=== PATIENT | male | born 1945 | race Two or more races ===

== ENCOUNTER 2025-08-23 12:28 | Emergency (ER) | payer MEDICARE, MEDICAID, SELFPAY ==
[2025-08-23] VITALS (14 sets, daily range): BP systolic 121–149; BP diastolic 79–94; PULSE 90–121; RESP 12–25; TEMP 36.5–37.1; O2SAT 88–100; BMI 23.8
--- NOTE | 2025-08-23 13:22 | PD.EDADULT ---
ED General RME/HPI General Chief complaint: General Adult/Misc Complain Stated complaint: GENERAL WEAKNESS Time Seen by Provider: 08/23/25 13:12 Arrival date/time: 08/23/25 12:28 RME / HPI RME / HPI narrative: 80 year old male with history of hypertension, diabetes, HI s/p pacemaker placement that was recently discharged from [facility] due to staph infection and pacemaker removal presents to the ED BIBA from home for evaluation of generalized weakness today. Accompanied by fevers, leg swelling, difficulty standing or getting around at home on his own. Patient reports he was just discharged from [facility] 2 days ago after a 2-3 week hospitalization for staph infection. States during his admission he had his pacemaker removed though were unable to remove 1 lead and advised he would need to have that removed at [place]. States he was discharged home on antibiotics which he reports compliance with. However, symptoms have remained unchanged. Additionally states since he was diagnosed with the staph infection of the pacemaker site 3-4 months ago his weakness has gradually worsened. Reportedly prior to infection 3 months ago, he was able to stand walk and ambulate on own without difficulty. Per medics, on scene the patient was saturating 88% on room air, placed on 6L nasal cannula with improvement to 94%. In the ED, patient reports feeling overall unwell. Patient is a poor historian. Related Data Home Medications ?Medication ?Instructions ?Recorded ?Confirmed clopidogrel 75 mg tablet (Plavix) 1 tab PO DAILY ##90 05/02/10 09/16/19 diphenhydramine HCl 25 mg tablet 50 mg PO BID PRN ITCHING ##180 10/01/13 09/16/19 atorvastatin 40 mg tablet 40 mg PO QPM ##0 12/13/15 09/16/19 carbidopa ER 50 mg-levodopa 200 mg 1 tab PO QID ##0 12/13/15 09/16/19 tablet,extended release gabapentin 300 mg capsule 300 mg PO TID #0 caps 12/13/15 09/16/19 labetalol 200 mg tablet 200 mg PO TID ##0 12/13/15 09/16/19 rotigotine 4 mg/24 hour 1 ea TD QDAY #0 patches 12/13/15 09/16/19 transdermal 24 hour patch (Neupro) tamsulosin 0.4 mg capsule 0.4 mg PO QDAY ##0 12/13/15 09/16/19 ferrous sulfate 325 mg (65 mg 1 tab PO BID ##0 08/12/17 09/16/19 iron) tablet finasteride 5 mg tablet 5 mg PO QDAY ##0 08/12/17 09/16/19 lisinopril 10 mg tablet 10 mg PO QDAY #0 tabs 08/12/17 09/16/19 mirtazapine 15 mg tablet (Remeron) 15 mg PO HS #0 tabs 08/12/17 09/16/19 clonidine 0.3 mg/24 hr weekly 0.3 mg topical QWEEK 03/05/19 09/16/19 transdermal patch Previous Rx's ?Medication ?Instructions ?Recorded aspirin 81 mg tablet,delayed 81 mg PO QDAY #30 tabs 01/07/19 release (Aspir-Low) hydralazine 25 mg tablet 50 mg (2 x 25 mg) PO TID PRN Blood 01/07/19 Pressure #30 tabs nitroglycerin 0.4 mg sublingual 0.4 mg SL [id number] PRN Chest Pain 01/07/19 tablet (Nitrostat) #100 tabs sertraline 25 mg tablet 50 mg (2 x 25 mg) PO DAILY #30 tabs 01/07/19 trazodone 100 mg tablet 200 mg (2 x 100 mg) PO HS #180 tabs 01/07/19 Allergies Allergy/AdvReac Type Severity Reaction Status Date / Time ketorolac Allergy Mild Rash Verified 03/05/19 13:03 milk Allergy Mild Diarrhea Verified 03/05/19 13:03 Sulfa (Sulfonamide Allergy Mild Vomiting Verified 03/05/19 13:03 Antibiotics) clarithromycin Allergy Unknown Verified 03/05/19 13:03 codeine Allergy Unknown Verified 03/05/19 13:03 hydrocodone Allergy Unknown Verified 03/05/19 13:03 hydromorphone Allergy Unknown Verified 03/05/19 13:03 rofecoxib Allergy Unknown Verified 03/05/19 13:03 DAIRY PRODUCTS Allergy Unknown SICK Uncoded 03/05/19 13:03 Review of Systems Review of Systems Systems Reviewed: All systems reviewed, normal except as documented Past Medical History Past Medical History NEUROLOGIC: Positive Neurological Disorders, Cerebrovascular Accident, Transient Ischemic Attacks (TIA), Parkinson's Disease, Seizures and Peripheral Neuropathy CARDIAC: Positive Cardiac Disorders, Hypercholesterolemia, Congestive Heart Failure and Hypertension RESPIRATORY: Positive Chronic Obstructive Pulmonary Disease (COPD), Bronchitis and Sleep Apnea GASTROINTESTINAL: Positive Gastrointestinal Disorders, Hiatal Hernia, Gastroesophageal Reflux Disease and Obesity GENITOURINARY: Positive Genitourinary Disorders and Benign Prostatic Hyperplasia MUSCULOSKELETAL: Positive Musculoskeletal Disorders ENDOCRINE: Positive Endocrine Disorders and Diabetes Mellitus Type 2 PSYCHO/SOCIAL: Positive Depression and Anxiety OTHER HISTORY: Positive Falls, MRSA, Chicken Pox, Measles, Mumps and Rubella ([place] Measles) Family History FAMILY HISTORY: Positive Family Respiratory Disorders, Family Cardiac Disorders, Family Gastrointestinal Problems, Family Cancer and Family Surgery Surgical History SURGICAL: Positive Cardiac Surgery, Pacemaker, Abdominal Surgery and Gastric Bypass Surgery Social History SMOKING STATUS: Current some day smoker SUBSTANCE USE: does not use ED Exam Narrative Physical exam: Generally patient is alert chronically ill-appearing male in mild distress secondary to multiple areas of complaint of pain, chest shows an open wound with a visible subcutaneous wire to the right upper chest without surrounding erythema or discharge, heart shows an irregular rhythm with rate at approximately 100, lungs are clear to auscultation equal bilaterally, extremities show bilateral femoral pulses to be intact. Left lower extremity shows a cold foot distal to the left ankle without palpable pulse. The right foot shows a cold distal half of the right foot without obvious palpable pulse. Neurologic exam shows [place] Coma Scale of 15, abdomen is soft and nontender. Skin shows multiple contusions. 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 Q4H START 00 Care 08/23/25 12:49 Active EKG (ED ONLY) *Do not use* NOW Care 08/23/25 13:[address] angio LE LT Stat Exams 08/23/25 13:[address] angio LE RT Stat Exams 08/23/25 13:26 Ordered EKG (ED Only) Stat Exams 08/23/25 13:24 Draft XR chest 1V portable Stat Exams 08/23/25 13:24 Completed BNP [B-Type Natriuretic Peptide] Stat Lab 08/23/25 13:30 Completed Blood Culture (Lab) Stat Lab 08/23/25 13:25 Received CBC Stat Lab 08/23/25 13:30 Completed CMP [Comprehensive Metabolic Panel] Stat Lab 08/23/25 13:30 Completed Lactic Acid [Lactate (Lactic Acid)] Stat Lab 08/23/25 13:30 Completed Troponin I Stat Lab 08/23/25 13:30 Completed UA [Urinalysis] Stat Lab 08/23/25 13:32 Completed Morphine* Inj Med 08/23/25 13:55 Discontinued 4 mg IVP X1 ONE Morphine* Inj Med 08/23/25 17:02 Discontinued 4 mg IVP X1 ONE Oxygen Delivery NOW RT 08/23/25 12:49 Active Vital Signs Vital signs: Vital Signs Temperature 98.4 F 08/23/25 12:45 Pulse Rate 110 H 08/23/25 12:45 Respiratory Rate 20 08/23/25 12:45 Blood Pressure 139/90 H 08/23/25 12:45 Pulse Oximetry (%) 100 08/23/25 12:45 Oxygen Delivery Method Nasal Cannula 08/23/25 12:45 Oxygen Flow Rate 4 08/23/25 12:45 Discharge Plan Prescriptions/Referrals Prescriptions/Med Rec: No Action clopidogrel [Plavix] 75 MG tablet 1 tab PO DAILY Qty: 90 diphenhydramine HCl 25 MG tablet 50 mg PO BID PRN (Reason: ITCHING) Qty: 180 atorvastatin 40 mg Tablet 40 mg PO QPM Qty: 0 labetalol 200 mg Tablet 200 mg PO TID Qty: 0 carbidopa-levodopa 50-200 mg Tablet Extended Release 1 tab PO QID Qty: 0 tamsulosin 0.4 mg Capsule 0.4 mg PO QDAY Qty: 0 Neupro 1 EACH patch 24 hour 1 ea TD QDAY Qty: 0 gabapentin 300 MG capsule 300 mg PO TID Qty: 0 ferrous sulfate 325 ( 65 )MG tablet 1 tab PO BID Qty: 0 lisinopril 10 MG tablet 10 mg PO QDAY Qty: 0 mirtazapine [Remeron] 15 MG tablet 15 mg PO HS Qty: 0 finasteride 5 MG tablet 5 mg PO QDAY Qty: 0 hydralazine 25 mg Tablet 50 mg PO TID PRN (Reason: Blood Pressure) Qty: 30 0RF Rx Instructions: prn SBP > 160 or DBP > 100 aspirin [Aspir-Low] 81 mg Tablet,Delayed Release (Dr/Ec) 81 mg PO QDAY Qty: 30 0RF nitroglycerin [Nitrostat] 0.4 mg Tablet, Sublingual 0.4 mg SL [id number] PRN (Reason: Chest Pain) Qty: 100 0RF sertraline 25 mg Tablet 50 mg PO DAILY Qty: 30 0RF trazodone 100 mg Tablet 200 mg PO HS Qty: 180 0RF clonidine 0.3 mg/24 hr Patch Weekly 0.3 mg TOPICAL QWEEK Rx Instructions: SATURDAY Referrals: Willie Estrella MD [Primary Care Provider] - In 1 week Problem List Clinical Impression: PAD (peripheral artery disease), Atrial fibrillation Patient/Caregiver Discharge Instructions Print Language: Occitan MDM Narrative MDM hospital course (for use when minimal MDM required): ICarolann am scribing for and in the presence of Dr. Lay. Patient was just discharged from [facility] 4 days ago. He was hospitalized from August 05 until August 19. I reviewed the discharge summary. Patient was being treated for a wound infection from a previously removed pacemaker unit to the right upper chest. The pacemaker wires for uncertain reason were left with inside the patient. Reading over the discharge summary the patient was to be transferred to [place] for wire removal however that was canceled for unknown reason. The patient's undercollar maker apparently is Dr. Treviño in [place]. Patient today complains of multiple areas of plain but mostly including legs and feet. On examination of the discharge summary and other physical exam documentation, decreased pulses to the lower extremities were not noted and neither was called pulses feet. It is uncertain whether or not the patient has been on his Eliquis. Patient is a very poor historian. He does have atrial fibrillation which sets the patient up for emboli. I am awaiting a CT angio of bilateral lower extremities. This is yet to be done. Patient has received morphine 4 mg IV x 2 for pain. I will have to sign this patient out to Dr. Suarez awaiting the results of the CT angiogram of bilateral lower extremities and pending disposition based on those results. Clinical Information Provided by: patient and EMS Medical Records reviewed [facility] and EMS Medical Records additional comments: I reviewed the discharge summary from [facility] from admission 08/05/2025 through 08/19/2025 Meds/Rx considered, not ordered None Labs/Rad/Tests considered, not ordered None Chronic Illness/Social Conditions which may negatively complicate care or outcome(s)-explain: COPD and CHF/CAD/Cardiac illness Labs Labs: interpreted by me Imaging Imaging interpretation: interpreted by me Imaging Interpretation(s): Ordering Physician: Brendan Lay DO Date of Service: 08/23/25 Procedure(s): XR chest 1V portable Accession Number(s): [id number] cc: Sajan Judge MD; Brendan Lay DO~ AP upright portable chest film on 08/23/2025 at 1:54 p.m. COMPARISON STUDY: 09/2019 INDICATION: Shortness of breath and chest pain Findings the heart size is magnified by the AP portable chest film technique however I could not exclude the possibility of mild definite cardiomegaly. A PA and lateral chest film would be necessary to better evaluate the heart size. There is what appears to be a cardiac pacemaker and AICD in place with their tips localized over the apex of the right ventricle the pacemaker device itself which was present on the previous comparison chest film has been removed. These wires are no longer connected with any visible piece of equipment. There is what appears to be a compression plate and screws overlying the lower cervical spine and at the upper edge of the film. There is mild calcification and very minimal tortuosity of the thoracic aorta unchanged from the prior film The prior film was taken in very poor inspiration with high position of the diaphragm, which probably accounted for the questionable right basilar infiltrate noted on that report. Today's film is taken with good inspiration in both lungs are pleural space are well expanded and clear IMPRESSION: 1. Borderline prominence in the size of the heart, this would be better evaluated with PA and lateral chest films. There is very minor elongation and tortuosity of the thoracic aorta to 2 electrode leads are present as outlined above, extending through the right subclavian vein into the superior vena cava with their tip in the region of the apex of the right phalangeal ventricle. Previously these had been connected to a pacemaker unit, this portion has been removed 2 . lungs and pleural space are clear, no acute cardiopulmonary disease is seen 3 there is prominent degenerative disc disease seen throughout the lower half of the thoracic spine and upper lumbar spine. Surgical hardware is seen overlapping the lower cervical spine. Dictated By: Sajan Judge MD Signed By: <Electronically signed by Sajan Judge MD in OV> 08/23/25 1433 Medication Administration(s) Medication Administration History Discontinued Medications Morphine Sulfate (Morphine Sulf Inj 4 Mg/Ml Vial) 4 mg IVP X1 ONE Stop: 08/23/25 13:56 Last Admin: 08/23/25 14:04 Dose: 4 mg Documented By: VL Morphine Sulfate (Morphine Sulf Inj 4 Mg/Ml Vial) 4 mg IVP X1 ONE Stop: 08/23/25 17:03 See above
--- NOTE | 2025-08-23 13:24 | EKG_ITS ---
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
[2025-08-23 13:43] LABS: Collection Type, Urine Voided; Squamous Epithelial Cell,Urine 0 /hpf (0-5)
[2025-08-23 13:44] LABS: Lactate (Lactic Acid) 2.0 mMol/L (0.4-2.0)
[2025-08-23 13:54] LABS: Basophils # (Auto) 0.0 Thou/mm3 (0.0-0.2); Basophils % (Auto) 0 % (0-2.5); Eosinophils # (Auto) 0.1 Thou/mm3 (0.0-0.5); Eosinophils % (Auto) 0 % (0-10); Hematocrit 39.4 % (41.0-53.0); Hemoglobin 13.4 g/dL (13.5-16.0); Immature Granulocytes Auto 0.17 Thou/mm3 (0.00-0.00); Lymphocytes # (Auto) 1.0 Thou/mm3 (1.0-4.8); Lymphocytes % (Auto) 8 % (10-50); Mean Corpuscular HGB Conc 34.0 g/dl (31.0-37.0); Mean Corpuscular Hemoglobin 30.9 pg (25.0-35.0); Mean Corpuscular Volume 91 fL (80-100); Monocytes # (Auto) 1.0 Thou/mm3 (0.0-0.8); Monocytes % (Auto) 8 % (0-12); Neutrophils # (Auto) 10.2 Thou/mm3 (1.8-7.7); Neutrophils % (Auto) 82 % (37-80); Nucleated Red Blood Cell # 0.00 Thou/mm3 (0.00-0.00); Nucleated Red Blood Cell % 0 /100 WBC (0); Platelet Count 275 Thou/mm3 (140-440); RDW Standard Deviation 46.6 fL (35.1-43.9); Red Blood Count 4.34 Miln/mm3 (4.50-5.90); White Blood Count 12.4 Thou/mm3 (3.8-10.6)
[2025-08-23] MEDS: MORPHINE SULF INJ 4 MG/ML VIAL IVP ×2 (14:04→17:16)
[2025-08-23 14:08] LABS: B-Type Natriuretic Peptide 232 pg/mL (0-100)
[2025-08-23 14:09] LABS: Alanine Aminotransferase 14 U/L (10-49); Albumin, Serum 3.5 gm/dL (3.4-4.8); Albumin/Globulin Ratio 1.1 (1.2-2.2); Alkaline Phosphatase 100 U/L (46-116); Anion Gap 10 (7-16); Aspartate Amino Transferase 23 U/L (0-34); BUN/Creatinine Ratio 15 Ratio (12-20); Bilirubin,Total 0.6 mg/dL (0.3-1.2); Blood Urea Nitrogen 15 mg/dL (9-23); Calcium 8.6 mg/dL (8.3-10.6); Calcium (Corrected) 9.0 mg/dL (8.5-10.1); Carbon Dioxide 24.1 mMol/L (20.0-31.0); Chloride 103 mMol/L (98-107); Creatinine (Component) 1.0 mg/dL (0.6-1.3); Estimated Creatinine Clearance 58.9 mL/min (>60); Globulin 3.3 gm/dL (2.3-3.5); Glucose 108 mg/dL (74-106); Osmolality,Calculated 275 (275-295); Potassium 4.1 mMol/L (3.4-5.1); Sodium 137 mMol/L (136-145); Total Protein 6.8 gm/dL (5.7-8.2); Troponin I 0.021 ng/mL (0.0-0.045); eGFR > 60 See Note
[2025-08-23 14:29] LABS: Bilirubin,Urine Negative (Negative); Blood,Urine Negative (Negative); Budding Yeast,Urine Present; Clarity,Urine Clear (Clear/Hazy); Color,Urine Yellow (Lt Yel-Yel); Glucose, Urine Negative (Negative); Ketones,Urine Negative (Negative); Leukocyte Esterase,Urine Negative (Negative); Nitrite,Urine Negative (Negative); PH,Urine 6.0 (5.0-7.0); Protein,Urine Trace (Neg - Trace); RBC,Urine 2 /hpf (0-3); Specific Gravity,Urine 1.021 (1.001-1.035); Urobilinogen,Urine Negative mg/dL (0.0-1.0); WBC,Urine < 1 /hpf (0-5)
--- NOTE | 2025-08-23 17:16 | XR_ITS ---
Examination: CTA abdominal aorta iliofemoral runoff. 2-D sagittal coronal reconstructions. 3-D reconstructions, vascular Date and time: August 23 2025, 1809 hours INDICATIONS: Fevers leg swelling difficulty standing leg pain beginning 2 days ago Technique: Multiple CTA images of the abdominal aorta iliofemoral runoff arterial vessels, 2.0 mm slice thickness, post intravenous administration 130 cc [id number] 2-D sagittal coronal reconstructions. 3-D reconstructions, vascular 3-D postprocessing, including vascular maximum intensity projection images, 3-D volume rendering Low dose protocols were performed. One or more of the following dose reduction techniques were used; automated exposure control, adjustment of the mA and/or KV according to patient size, use of iterative reconstruction technique. Findings: Mild enlargement cardiac contour Atelectasis left lower lobe Small bilateral pleural effusions Liver mildly irregular in contour No gallstones Spleen not enlarged Retrocardiac gastric hernia Nodular thickening left adrenal gland No hydronephrosis No bowel obstruction Colonic diverticulosis Moderate prostatomegaly No pericecal inflammatory change Abdominal aortic calcification No significant stenosis origin celiac superior mesenteric axes or renal arteries No critical stenoses common iliac external iliac internal iliac or common femoral arteries Bilateral superficial femoral arteries are heavily calcified but no critical stenoses Right popliteal artery intact Occlusion right anterior tibial artery proximally Attenuated right main continuation trunk and posterior tibial arteries, the posterior right tibial artery does fill to the ankle Left popliteal artery is attenuated but does fill Occlusion of the left anterior tibial artery proximally Occlusion of the main continuation trunks and posterior tibial artery multiple sites beginning proximally IMPRESSION: Occlusion right anterior tibial artery proximally 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
--- NOTE | 2025-08-23 18:16 | EDNOTE_ITS ---
Emergency Room Addendum Addendum Narrative: 1800: Care assumed from Dr. Lay, the previous shift emergency physician. Past medical, surgical, social and family history reviewed. Vitals and home medications reviewed. Results and treatment plan discussed. I will assume the care of the patient at this time and will follow the patient. Please refer to the emergency department record for history and examination from initial visit. Debilitated 80yo male with multiple medical problems including aFib, s/p pac emaker pocket infection, recently discharged from [facility] after being treated for postop infection. Of note, pacemaker leads were left in the site and there was consideration for pacemaker extraction which had been discontinued. Patient reportedly had been discharged on Metoprolol and Eliquis, presents today in aFib with cold, painful LLE greater than RLE. Patient underwent CTA with run off demonstrated an severe occlusion of both anterior and posterior left tibial artery, in addition to an occlusion on the right tibial artery with some reconstitution of flow. Patient was began on Heparin infusion, administered IV Cardizem for rate control, and will require transfer for vascular embolization. 2057: Discussed case with [facility]'s transfer center. Discussed patients ED course, exam findings, labs, and radiology results. At 2102, Dr. Banks, vascular surgeon from [facility] accepts the patient for transfer. Dx: acute bilateral lower extremity arterial insufficiency, postoperative wound infection, exposed pacemaker leads requiring removal RADIOLOGY RESULTS: [facility] Report Signed Patient: ENRIQUE SHER. Record#: [id number] Birthdate: 1945 Age/Sex: 80 / M Location: [facility] Attending Dr: Ordering Physician: Brendan Lay DO Date of Service: 08/23/25 Procedure(s): CT angio abd ilio fem runoff Accession Number(s): [id number] cc: Sajan Eng MD; Brendan Lay DO; Willie Estrella MD~ Examination: CTA abdominal aorta iliofemoral runoff. 2-D sagittal coronal reconstructions. 3-D reconstructions, vascular Date and time: August 23 2025, 1809 hours INDICATIONS: Fevers leg swelling difficulty standing leg pain beginning 2 days ago Technique: Multiple CTA images of the abdominal aorta iliofemoral runoff arterial vessels, 2.0 mm slice thickness, post intravenous administration 130 cc [id number] 2-D sagittal coronal reconstructions. 3-D reconstructions, vascular 3-D postprocessing, including vascular maximum intensity projection images, 3-D volume rendering Low dose protocols were performed. One or more of the following dose reduction techniques were used; automated exposure control, adjustment of the mA and/or KV according to patient size, use of iterative reconstruction technique. Findings: Mild enlargement cardiac contour Atelectasis left lower lobe Small bilateral pleural effusions Liver mildly irregular in contour No gallstones Spleen not enlarged Retrocardiac gastric hernia Nodular thickening left adrenal gland No hydronephrosis No bowel obstruction Colonic diverticulosis Moderate prostatomegaly No pericecal inflammatory change Abdominal aortic calcification No significant stenosis origin celiac superior mesenteric axes or renal arteries No critical stenoses common iliac external iliac internal iliac or common femoral arteries Bilateral superficial femoral arteries are heavily calcified but no critical stenoses Right popliteal artery intact Occlusion right anterior tibial artery proximally Attenuated right main continuation trunk and posterior tibial arteries, the posterior right tibial artery does fill to the ankle Left popliteal artery is attenuated but does fill Occlusion of the left anterior tibial artery proximally Occlusion of the main continuation trunks and posterior tibial artery multiple sites beginning proximally IMPRESSION: Occlusion right anterior tibial artery proximally 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 Dictated By: Sajan Eng MD Signed By: <Electronically signed by Sajan Eng MD in [place]> 08/23/251950 Critical Care Time: 40 minutes The high probability of sudden, clinically significant deterioration in the patient?s condition required the highest level of my preparedness to intervene urgently. The services I provided to this patient were to treat and/or prevent clinically significant deterioration. Services included the following: chart data review, reviewing nursing notes and/or old charts, documentation time, ruby on rails consultant collaboration regarding findings and treatment options, medication orders and management, direct patient care, vital sign assessments and ordering, interpreting and reviewing diagnostic studies and lab tests. Aggregate critical care time includes only time during which I was engaged in work directly related to the patient?s care, as described above, whether at bedside or elsewhere in the Emergency Department. It did not include time spent performing other reported procedures or the services of residents, students, nurses or physician assistants.
[2025-08-23] MEDS: HYDROmorphone INJ 2 MG/ML VIAL 0.5 MG IVP ×2 (18:48→19:49)
[2025-08-23 20:57] LABS: INR 1.1 (0.9-1.3); Partial Thromboplastin Time 22.4 Seconds (22.0-36.0); Prothrombin Time 11.8 Seconds (9.0-12.2)
--- NOTE | 2025-08-23 21:08 | PC.NURSE ---
[facility] accepts- Nurse to give report to MD Bakns accepts ER to ER vascular specialist
[2025-08-23] MEDS: DILTIAZEM INJ 5 MG/ML VIAL 5 ML 10 MG IV (21:18)
[2025-08-23] MEDS: HEPARIN SOD INJ 5000 UNIT/ML VIAL 5850 UNIT IV (21:19)
[2025-08-23] MEDS: Heparin/D5w 25K 250 ML Ivpb 25,000 UNIT/250 ML BAG 13.145 UNIT IV (21:21)
[2025-08-23] MEDS: HYDROmorphone INJ 2 MG/ML VIAL 1 MG IVP (23:22)
--- NOTE | 2025-08-23 23:33 | PC.NURSE ---
REPORT CALLED TO [facility] FOR REPORT SPOKE TO GOOD BOSS.
== END 2025-08-23 23:29 | disposition short-term general hospital (02) ==
PROVIDERS: Emergency Medicine; Emergency Provider Emergency Medicine; PCP Family Medicine
DX: I73.9 Peripheral vascular disease, unspecified (principal); I77.1 Stricture of artery; I48.91 Unspecified atrial fibrillation; Z95.0 Presence of cardiac pacemaker; I70.0 Atherosclerosis of aorta; Z79.02 Long term (current) use of antithrombotics/antiplatelets; I25.2 Old myocardial infarction; E11.51 Type 2 diabetes mellitus with diabetic peripheral angiopathy without gangrene; F17.210 Nicotine dependence, cigarettes, uncomplicated; I11.0 Hypertensive heart disease with heart failure; I50.9 Heart failure, unspecified; Z75.1 Person awaiting admission to adequate facility elsewhere
CPT/HCPCS: 36415; 71045; 75635; 80053; 81001; 83605; 83880; 84484; 85025; 85610; 85730; 87040; 93005; 99285; A4649; J1171; J1644; J2270; J3490; Q9967